=== PATIENT | female | born 1985 | race African-American/Black ===

== ENCOUNTER 2025-01-16 15:52 | Emergency (ER) | payer MEDICAID ==
[~2025-01-16] VITALS: Ht 170.2 cm; Wt 82.0 kg
[2025-01-16 15:57] VITALS: TEMP 36.9; O2SAT 99
[2025-01-16 19:23] VITALS: BP 112/82; PULSE 76; RESP 20
[2025-01-16] MEDS: ACETAMINOPHEN 325MG TABLET PO STA (19:23)
[2025-01-16] MEDS: KETOROLAC 30MG/ML VIAL IM STA (19:23)
[2025-01-16] MEDS ORDERED: LIDO700A30 TP (21:25)
[2025-01-16] MEDS ORDERED: CYCL10TA21 MT (21:26)
== END 2025-01-16 21:38 | disposition home or self-care (01) ==
LOC: ER 15:52
DX: S09.90XA Unspecified injury of head, initial encounter (principal); M54.2 Cervicalgia; M54.9 Dorsalgia, unspecified; V49.9XXA Car occupant (driver) (passenger) injured in unspecified traffic accident, initial encounter; Y93.89 Activity, other specified; Y92.410 Unspecified street and highway as the place of occurrence of the external cause; Y99.8 Other external cause status
CPT/HCPCS: 72100; 70450; 72125; 96372; 99285; J1885; Z7610